=== PATIENT | male | born 1965 | race Caucasian/White ===

== ENCOUNTER 2025-03-12 21:49 | Inpatient (IN) | payer OTHER ==
[~2025-03-12] VITALS: Ht 172.7 cm; Wt 108.6 kg
[2025-03-12 21:52] VITALS: O2SAT 100
[2025-03-12 22:37] LABS: BASOPHILS % 0.4 % (0.0-2.0); EOSINOPHILS % 1.3 % (0.0-5.0); HEMATOCRIT. 47.5 % (42.0-52.0); HEMOGLOBIN. 15.6 g/dL (14.0-18.0); LYMPHOCYTES % 13.2 % (20.0-50.0); MEAN PLATELET VOLUME 7.1 fl (7.4-10.4); MONOCYTES % 6.9 % (2.0-8.0); NEUTROPHILS % 78.2 % (40.0-76.0); PLATELET 219 x1000/uL (130-400); RED BLOOD CELL COUNT 5.25 mill/uL (4.7-6.1); RED CELL DISTRIBUTION WIDTH 15.0 % (11.6-14.6)
[2025-03-12] MEDS: SODIUM CHLORIDE 0.9% 1,000 ML IV ONE (22:41)
[2025-03-12 22:51] LABS: CREATININE 1.2 mg/dL (0.6-1.3)
[2025-03-12 22:52] LABS: ETHANOL BLOOD < 10 mg/dL (<10); PROTEIN TOTAL 7.4 g/dL (6.0-8.3); UREA NITROGEN BLOOD 15 mg/dL (9-23)
[2025-03-12 22:53] LABS: ASPARTATE AMINOTRANSFERASE 145 IU/L (<34)
[2025-03-12 22:54] LABS: BILIRUBIN DIRECT 0.2 mg/dL (<=3.0); BILIRUBIN TOTAL 0.7 mg/dL (0.1-1.0)
[2025-03-12 22:55] LABS: TROPONIN I HIGH SENSITIVITY 132 ng/L (3.0-53)
[2025-03-12] MEDS ORDERED: IOHEXOL-350 100 ML BOTTLE ONE (23:28)
[2025-03-12] MEDS: TENECTEPLASE 50MG/VIAL (FOR MI OR PE) IV ONE (23:41)
[2025-03-13] VITALS (122 sets, daily range): BP systolic 84–169; BP diastolic 59–145; PULSE 53–92; RESP 10–25; TEMP 36.4–36.9; O2SAT 86–100
[2025-03-13 00:37] LABS: INR 1.0
[2025-03-13] MEDS ORDERED: NALOXONE HCL 0.4MG/ML VIAL IV PRN (02:30)
[2025-03-13] MEDS ORDERED: MORPHINE SULFATE 4 MG/ML INJ (FOR IV/IM USE) IV PRN (02:30)
[2025-03-13] MEDS ORDERED: ONDANSETRON HCL 4MG/2ML INJ IV PRN (02:30)
[2025-03-13] MEDS ORDERED: MAGNESIUM/ALUMINUM HYDROXIDE/SIMETHICONE 30ML UDC PO PRN (03:15)
[2025-03-13] MEDS ORDERED: IPRATROPIUM/ALBUTEROL 0.5-3(2.5)MG/3ML NEB HHN PRN (03:15)
[2025-03-13] MEDS ORDERED: ACETAMINOPHEN 325MG TABLET PO PRN (03:15)
[2025-03-13] MEDS ORDERED: DEXTROSE 50% WATER 50ML SYRINGE IV PRN (03:30)
[2025-03-13 03:34] LABS: TROPONIN I HIGH SENSITIVITY 365 ng/L (3.0-53)
[2025-03-13] MEDS: DEXT 5%/0.9% NACL 1,000 ML IV SCH (05:14)
[2025-03-13 06:30] LABS: BASOPHILS % 0.4 % (0.0-2.0); EOSINOPHILS % 0.5 % (0.0-5.0); HEMATOCRIT. 47.9 % (42.0-52.0); HEMOGLOBIN. 15.6 g/dL (14.0-18.0); LYMPHOCYTES % 13.2 % (20.0-50.0); MEAN PLATELET VOLUME 7.2 fl (7.4-10.4); MONOCYTES % 10.2 % (2.0-8.0); NEUTROPHILS % 75.7 % (40.0-76.0); PLATELET 209 x1000/uL (130-400); RED BLOOD CELL COUNT 5.24 mill/uL (4.7-6.1); RED CELL DISTRIBUTION WIDTH 15.1 % (11.6-14.6)
[2025-03-13 06:41] LABS: CREATININE 1.0 mg/dL (0.6-1.3)
[2025-03-13 06:42] LABS: UREA NITROGEN BLOOD 15 mg/dL (9-23)
[2025-03-13] MEDS: BLOOD SUGAR DIAGNOSTIC STRIP TEST SCH (06:43)
[2025-03-13 06:44] LABS: PHOSPHORUS 4.2 mg/dL (2.5-4.9)
[2025-03-13] MEDS: INSULIN LISPRO 100 UNITS/ML SUBCUT SCH (06:44)
[2025-03-13 07:04] LABS: TROPONIN I HIGH SENSITIVITY 485 ng/L (3.0-53)
[2025-03-13 07:40] LABS: *AMPHETAMINES SCREEN URINE NEGATIVE (NEGATIVE); *BARBITURATES SCREEN URINE NEGATIVE (NEGATIVE); *BENZODIAZEPINES SCREEN URINE NEGATIVE (NEGATIVE); *COCAINE SCREEN URINE NEGATIVE (NEGATIVE); CANNABINOID URINE SCREEN NEGATIVE (NEGATIVE); ECSTASY MDMA SCREEN URINE NEGATIVE (NEGATIVE); METHADONE URINE SCREEN NEGATIVE (NEGATIVE); OPIATES URINE SCREEN NEGATIVE (NEGATIVE); PHENCYCLIDINE URINE SCREEN NEGATIVE (NEGATIVE)
[2025-03-13 08:20] LABS: BG BASE EXCESS -2.2 mmol/L (-2.0-3.0); BG CARBOXYHEMOGLOBIN 1.1 % (0.5-1.5); BG DEOXYHEMOGLOBIN 1.4 % (0.0-5.0); BG FLOW(L/min) 2.50 L/min; BG HCO3 ACT 21.2 mmol/L (21.0-28.0); BG METHEMOGLOBIN 0.1 % (0.5-1.5); BG OXYGEN SATURATION 98.6 % (94.0-98.0); BG OXYHEMOGLOBIN 97.4 % (94.0-98.0); BG PCO2 33.0 mmHg (35.0-48.0); BG PEEP (cmH2O) 30.0 cmH2O; BG PH 7.425 (7.350-7.450); BG PO2 115.9 mmHg (83.0-108.0); BG SAMPLE SITE RIGHT RADIAL; BG TOTAL HEMOGLOBIN 15.8 g/dL (13.5-17.5); BG VENT MODE NASAL CANNULA
[2025-03-13 13:31] LABS: TROPONIN I HIGH SENSITIVITY 414 ng/L (3.0-53)
[2025-03-13] MEDS: PANTOPRAZOLE SODIUM 40 MG/VIAL IV SCH (15:45)
[2025-03-13] MEDS: SODIUM CHLORIDE 0.45% 1,000 ML IV ONE (15:48)
[2025-03-13 15:53] LABS: TROPONIN I HIGH SENSITIVITY 344 ng/L (3.0-53)
[2025-03-13] MEDS ORDERED: HYDRALAZINE 20MG/ML VIAL IV PRN (19:00)
[2025-03-13] MEDS ORDERED: IOHEXOL-350 100 ML BOTTLE ONE (23:41)
[2025-03-14] VITALS (75 sets, daily range): BP systolic 87–157; BP diastolic 48–129; PULSE 53–89; RESP 11–31; TEMP 36.4–37; O2SAT 93–100
[2025-03-14] MEDS: ACETAMINOPHEN 325MG TABLET PO PRN (05:24)
[2025-03-14] MEDS ORDERED: IOHEXOL-350 100 ML BOTTLE ONE (06:04)
[2025-03-14] MEDS: DEXT 5%/0.9% NACL 1,000 ML IV SCH (10:47)
[2025-03-14 11:24] LABS: BASOPHILS % 0.7 % (0.0-2.0); EOSINOPHILS % 2.6 % (0.0-5.0); HEMATOCRIT. 47.2 % (42.0-52.0); HEMOGLOBIN. 15.5 g/dL (14.0-18.0); LYMPHOCYTES % 22.3 % (20.0-50.0); MEAN PLATELET VOLUME 7.0 fl (7.4-10.4); MONOCYTES % 10.8 % (2.0-8.0); NEUTROPHILS % 63.6 % (40.0-76.0); PLATELET 194 x1000/uL (130-400); RED BLOOD CELL COUNT 5.24 mill/uL (4.7-6.1); RED CELL DISTRIBUTION WIDTH 14.8 % (11.6-14.6)
[2025-03-14 11:33] LABS: INR 1.1
[2025-03-14 11:34] LABS: CREATININE 1.0 mg/dL (0.6-1.3); UREA NITROGEN BLOOD 11 mg/dL (9-23)
[2025-03-14] MEDS: HEPARIN 80 UNITS/KG BOLUS IV SCH (12:15)
[2025-03-14] MEDS: HEPARIN 25,000 UNITS PREMIX 250 ML IV PRN (13:13)
[2025-03-14] MEDS ORDERED: HEPARIN 5000 UNITS/ML VIAL IV PRN ×2 (17:00)
[2025-03-14] MEDS: ENOXAPARIN 120MG/0.8ML SYR SUBCUT SCH (17:29)
[2025-03-15] VITALS (9 sets, daily range): BP systolic 99–131; BP diastolic 70–105; PULSE 55–72; RESP 11–17; TEMP 36.6; O2SAT 94–100
[2025-03-15 06:01] LABS: BASOPHILS % 0.6 % (0.0-2.0); EOSINOPHILS % 3.5 % (0.0-5.0); HEMATOCRIT. 45.6 % (42.0-52.0); HEMOGLOBIN. 15.1 g/dL (14.0-18.0); LYMPHOCYTES % 26.2 % (20.0-50.0); MEAN PLATELET VOLUME 7.0 fl (7.4-10.4); MONOCYTES % 12.1 % (2.0-8.0); NEUTROPHILS % 57.6 % (40.0-76.0); PLATELET 214 x1000/uL (130-400); RED BLOOD CELL COUNT 5.12 mill/uL (4.7-6.1); RED CELL DISTRIBUTION WIDTH 14.9 % (11.6-14.6)
[2025-03-15 06:24] LABS: CREATININE 1.0 mg/dL (0.6-1.3); UREA NITROGEN BLOOD 14 mg/dL (9-23)
[2025-03-15] MEDS ORDERED: XAR15 MT (12:01)
== END 2025-03-15 16:50 | disposition home or self-care (01) | DRG 175 ==
LOC: ER 21:49 → MICUNO 23:33 → EDBEDREQSVC 23:36 → EDBEDREQTM 23:36 → EDBEDREQ 23:36 → ENRESERV 23:49 → 5EST 03-14 21:51
PROVIDERS: ADMIT Student in an Organized Health Care Education/Training Program; ATTEND Student in an Organized Health Care Education/Training Program
DX: I26.92 Saddle embolus of pulmonary artery without acute cor pulmonale (principal); J96.01 Acute respiratory failure with hypoxia; R57.9 Shock, unspecified; I82.432 Acute embolism and thrombosis of left popliteal vein; I24.89 Other forms of acute ischemic heart disease; L97.219 Non-pressure chronic ulcer of right calf with unspecified severity; L97.319 Non-pressure chronic ulcer of right ankle with unspecified severity; Z20.822 Contact with and (suspected) exposure to COVID-19; W18.39XA Other fall on same level, initial encounter; R73.03 Prediabetes; S50.02XA Contusion of left elbow, initial encounter; Z91.148 Patient's other noncompliance with medication regimen for other reason; Z86.718 Personal history of other venous thrombosis and embolism; Y93.89 Activity, other specified; Y92.89 Other specified places as the place of occurrence of the external cause; Y99.8 Other external cause status
CPT/HCPCS: 36415; 36600; 71045; 71275; 73080; 80048; 80076; 80305; 80320; 82375; 82550; 82805; 82962; 83036; 83735; 83880; 84100; 84484; 85025; 85379; 86850; 86900; 87426; 93005; 93306; 93970; 99291; J1644; J1650; J2470; J3101; J7030; J7042; Q9967; G0480